=== PATIENT | male | born 1980 | race Caucasian/White ===

== ENCOUNTER 2018-05-18 11:40 | Inpatient (IN) | payer BC, OTHER ==
[2018-05-18] MEDS ORDERED: ONDANSETRON 4 MG/2 ML VIAL IV PRN (12:09)
[2018-05-18] MEDS ORDERED: MORPHINE 2 MG/ML SYR IV PRN (12:09)
[2018-05-18] MEDS ORDERED: TRAMADOL HCL 50 MG TAB PO PRN (12:09)
[2018-05-18] MEDS ORDERED: GENTAMICIN 80 MG/100 ML BAG 80 MG/100 ML BAG IV SCH (12:15)
[2018-05-18] MEDS: ACETAMINOPHEN 500 MG TAB PO PRN ×2 (12:39→18:54)
[2018-05-18 12:57] LABS: Urine Appearance CLEAR; Urine Bilirubin NEGATIVE (NEG); Urine Blood NEGATIVE (NEG); Urine Color YELLOW; Urine Glucose NEGATIVE (NEG); Urine Protein NEGATIVE (NEG)
[2018-05-18 13:11] LABS: Urine Microscopic Reflex ORDER UMIC
[2018-05-18 13:17] LABS: Urine Bacteria <20 /HPF (NONE SEEN)
[2018-05-18 13:18] LABS: Urine Culture Reflex Order NOT NEEDED
[2018-05-18] MEDS: HYDROCODONE/APAP 7.5/325 MG TAB PO PRN ×2 (13:30→18:59)
[2018-05-18] MEDS: CEFTRIAXONE/SWI 2gm 2 GM/20 ML SYR IV SCH (13:31)
[2018-05-18] MEDS: NA CHLORIDE 0.9% 1,000 ML IV SCH ×2 (13:31→20:12)
[2018-05-18 13:43] LABS: Absolute Monocytes 1.2 K/uL (0.1-1.3); Absolute Neutrophil 13.7 K/uL (1.8-8.0); Basophils % 0.3 % (0-1.3); Eosinophils % 0.1 % (0-4.4); Hematocrit 42.9 % (39.6-49.0); Lymphocytes % 6.5 % (15.3-44.8); MCH 30.5 pg (27.0-35.0); MCV 89.5 fL (80-100); MPV 7.3 fL (7.6-11.3); Monocytes % 7.6 % (3.3-12.3); RBC Red Blood Cell Count 4.79 M/uL (4.33-5.43)
[2018-05-18 13:56] LABS: Bilirubin Total 0.9 mg/dL (0.2-1.0); Potassium 3.8 mmol/L (3.5-5.1); Protein, Total 7.9 g/dL (6.4-8.2)
--- NOTE | 2018-05-18 14:38 | P.HP ---
Certification for Inpatient Patient admitted to: Inpatient With expected LOS: >2 Midnights Patient will require the following post-hospital care: None Practitioner: I am a practitioner with admitting privileges, knowledge of patient current condition, hospital course, and medical plan of care. Services: Services provided to patient in accordance with Admission requirements found in Title 42 Section 412.3 of the Code of Federal Regulations Patient History Date of Service: 05/18/18 Primary Care Provider: None; Urology-Dr. Whittington Reason for admission: Direct admission-acute prostatitis History of Present Illness: 38-year-old male presented to the hospital as a direct admit from urology. Patient was a direct admission from urology. Patient with history of recurrent UTI and nephrolithiasis. Patient reported fever over the last day. He also reported some poor urine flow since Friday. He denies any hematuria. Some nausea but no vomiting noted. He denies any chest pain, shortness of breath. Right flank pain was noted but mild. Patient was seen by urology. Patient was admitted for further evaluation and treatment. When I saw the patient, he appeared stable. He did not appear in any respiratory distress. Patient did not appear septic. Patient with history of recurrent UTIs. He has had 2 UTIs with possible pyelonephritis twice over the past 6 months. Patient with history of nephrolithiasis. Allergies amitriptyline HCl [From Elavil] Allergy (Intermediate, Verified 01/12/13 22:30) AMS Home medications list reviewed: Yes Home Medications: Oxybutynin Chloride [Ditropan*] 5 mg PO Q8HP #30 tab 01/13/13 Phenazopyridine HCl [Pyridium] 200 mg PO Q8HP #30 tablet 01/13/13 Tamsulosin [Flomax*] 0.4 mg PO DAILYPRN PRN #30 cap 01/13/13 - Past Medical/Surgical History Diabetic: No -: Recurrent UTI -: Nephrolithiasis -: Right bone fracture repair -: Stone removal -: Vasectomy with reversal Psychosocial/ Personal History: The patient is . He has 2 children. He works as a it programmer. - Family History Family History: Reviewed- Non-Contributory - Social History Smoking Status: Never smoker Alcohol use: Yes CD- Drugs: No Caffeine use: Yes Place of Residence: Home Review of Systems General: Fever, Chills, Weakness, As per HPI Eyes: Unremarkable ENT: Unremarkable Respiratory: Unremarkable Cardiovascular: Unremarkable Gastrointestinal: Nausea, Abdominal Pain, As per HPI Genitourinary: Incontinence, As per HPI Musculoskeletal: Unremarkable Integumentary: Unremarkable Neurological: Unremarkable Lymphatics: Unremarkable Physical Examination - Vital Signs Temperature: 104 F Blood Pressure: 119/70 Pulse: 93 Respirations: 18 Pulse Ox (%): 98 - Physical Exam General: Alert, In no apparent distress, Oriented x3, Cooperative HEENT: Atraumatic, Normocephalic, PERRLA, Mucous membr. moist/pink Neck: Supple, No Thyromegaly Respiratory: Clear to auscultation bilaterally, Normal air movement Cardiovascular: Normal pulses, Regular rate/rhythm Gastrointestinal: Normal bowel sounds, Soft and benign, Non-distended, No masses , No rebound, No guarding, Tenderness (Mild pain to the right flank) Musculoskeletal: No erythema, No tenderness, No warmth Integumentary: No tenderness/swelling, No erythema, No warmth, No cyanosis Neurological: Normal speech, Normal strength at 5/5 x4 extr, Normal tone, Normal affect Lymphatics: No axilla or inguinal lymphadenopathy - Studies Laboratory Data (last 24 hrs) 05/18/18 13:18: Sodium 138, Potassium 3.8, BUN 11, Creatinine 1.00, Glucose 101 , Magnesium 2.0, Total Bilirubin 0.9, AST 13 L, ALT 36, Alkaline Phosphatase 63 05/18/18 13:18: WBC 16.0 H, Hgb 14.6, Hct 42.9, Plt Count 228 Assessment and Plan - Plan Impression: Fever, right flank pain suspect prostatitis verses left pyelonephritis with history of recurrent UTI Nephrolithiasis Plan: Fever, right flank pain suspect prostatitis verses left pyelonephritis with history of recurrent UTI: Patient was a direct admit from neurology. Case discussed at length with urology. Will start Rocephin 2 g IV daily and gentamicin. Pharmacy to monitor and adjust. Will obtain blood and urine culture. Will provide medication for fever. Will start Flomax. Order CT scan of the abdomen and pelvis with and without IV and oral contrast to further evaluate. Will need to rule out abscess verses other etiology. Pro calcitonin and lactic acid within normal range. Will start IV fluids. Provide medication for pain. Will reassess tomorrow. Nephrolithiasis: Patient with history of nephrolithiasis. Will check CT scan of the abdomen and pelvis to further evaluate. I will turn the service over to Dr. Stearns tomorrow. I will go over the plan of care with him. - Advance Directives Does patient have a Living Will: No Does patient have a Durable POA for Healthcare: No - Code Status/Comfort Care Code Status Assessed: Yes (Patient full code) Time Spent Managing Pts Care (In Minutes): 55
--- NOTE | 2018-05-18 14:44 | RAD REPORT ---
EXAM DESCRIPTION: CT - Abdomen Pelvis W/Wo Contrast - 05/18/2018 2:33 pm CLINICAL HISTORY: Abdominal pain/fever COMPARISON: 2012 TECHNIQUE: Computed axial tomography of the abdomen and pelvis was obtained. Unenhanced and enhanced images were taken. 100 cc Isovue 300 was administered intravenously. Images were obtained in arteria l, venous and delayed phases. Coronal reconstruction was performed. All CT scans are performed using dose optimization technique as appropriate and may include automated exposure control or mA/KV adjustment according to patient size. FINDINGS: A 4 millimeter calculus is present the lower pole of the left kidney. Hydronephrosis is no t noted. A right renal calculus is not seen. A ureteral calculus is not visualized. The prostate gland is mildly enlarged. Seminal vesicles appear unremarkable. The appendix is normal. There is no evidence of diverticulitis IMPRESSION: 4 millimeter nonobstructing left renal calculus
[2018-05-18 15:13] LABS: Platelet Estimate ADEQ; Toxic Granulation NOTED; Urine White Blood Cell Casts OK
[2018-05-18 15:15] LABS: Blood Morphology Comment NOT SEEN (NOT SEEN)
[2018-05-18 15:36] VITALS: BMI 30.7
[2018-05-18] MEDS: ENOXAPARIN 40 MG/0.4 ML SQ SCH (17:51)
[2018-05-18] MEDS: GENTAMICIN IV SCH (17:51)
[2018-05-18] MEDS: NA CHLORIDE 0.9% IV SCH (17:51)
[2018-05-18] MEDS ORDERED: INFLUENZA VACCINE (for 3y+) 0.5 ML DOSE IMVAC ONE (19:00)
[2018-05-18] MEDS: TAMSULOSIN 0.4 MG SR CAP PO SCH (20:12)
[2018-05-19] MEDS: NA CHLORIDE 0.9% IV SCH ×3 (00:22→17:45)
[2018-05-19] MEDS: GENTAMICIN IV SCH ×3 (00:22→17:45)
[2018-05-19] MEDS: HYDROCODONE/APAP 7.5/325 MG TAB PO PRN ×3 (00:25→20:05)
[2018-05-19 04:17] LABS: Absolute Lymphocytes (CBC) 1.8 K/uL (0.7-4.9); Absolute Monocytes 1.3 K/uL (0.1-1.3); Absolute Neutrophil 13.9 K/uL (1.8-8.0); Basophils % 0.3 % (0-1.3); Eosinophils % 0.1 % (0-4.4); Hematocrit 38.5 % (39.6-49.0); Lymphocytes % 10.8 % (15.3-44.8); MCH 30.5 pg (27.0-35.0); MCV 90.2 fL (80-100); MPV 7.4 fL (7.6-11.3); Monocytes % 7.4 % (3.3-12.3); RBC Red Blood Cell Count 4.27 M/uL (4.33-5.43)
[2018-05-19 04:27] LABS: Magnesium 1.8 mg/dL (1.8-2.4); Potassium 4.1 mmol/L (3.5-5.1)
[2018-05-19] MEDS ORDERED: MAGNESIUM SULFATE 1 gm IVPB 1 GM/100 ML BAG IV ONE (05:36)
[2018-05-19] MEDS: PANTOPRAZOLE 40MG TABLET PO SCH (06:01)
[2018-05-19] MEDS: CEFTRIAXONE/SWI 2gm 2 GM/20 ML SYR IV SCH (09:11)
[2018-05-19] MEDS: NA CHLORIDE 0.9% 1,000 ML IV SCH ×3 (09:17→20:01)
[2018-05-19] MEDS: ENOXAPARIN 40 MG/0.4 ML SQ SCH (17:51)
--- NOTE | 2018-05-19 18:12 | PN ---
Date of Progress Note: 05/19/2018 Subjective: The patient seen and examined. Chart reviewed and case discussed with RN and Dr. Whittington. The patient doing significantly better. Still having a little bit of discomfort, however, no fever s overnight. Did not appear septic. We were able to tolerate diet. Review of Systems: Negative except as above. Medications: List reviewed. Physical Examination: Vital Signs: Temperature 98.7, heart rate 83, blood pressure 120/72, respirations 18, O2 97% on room air. General: Awake, alert, oriented x3. Some mild distress. Obese male. CV: S1, S2. No murmurs. Regular rate and rhythm. Peripheral pulses present. Respiratory: Moving air well bilaterally. No wheezing or stridor gastrointestinal. Abdomen: Abdomen is soft. Mild tenderness to palpation in the suprapubic region. No guarding or ri gidity. Bowel sounds positive. Extremities: No clubbing, cyanosis, edema. No flank tenderness. Neurologic: Nonfocal. Laboratory Data: Sodium 140, potassium 4.1, chloride 106, CO2 28, BUN 8, creatinine 1, glucose 112, calcium 8.2, magnesium 1.8. Lactic acid 1. WBC 17.1, H and H 13 and 38.5, platelets 213, neutrophil s 81%. Blood cultures pending. Urine culture growing out 4+ gram-negative rods, 100,000 colony-form ing units. CT scan of the abdomen and pelvis shows 11 mm low-density area present within the left as pect of the prostate gland, which may represent an abscess. A 4 mm nonobstructing left renal calculu s. Prostate gland mildly enlarged. Seminal vesicles appear unremarkable. Appendix is normal. No e vidence of diverticulitis. Assessment And Plan: A 38-year-old male with fever, right flank pain, suspect prostatitis versus pos sible pyelonephritis. CT scan of abdomen does show that there is an 11 mm abscess in the prostate. Dr. Whittington is on the case. We will continue with IV antibiotics. Urine culture growing out gram-nega tive rods. Blood culture is still pending. The patient is currently on Rocephin and gentamicin. No fevers overnight. White count still elevated, however, not septic, lactated negative, mildly tachyc ardic. No hypertension. No fevers. We will continue Flomax. The patient does have abscess. We wi ll defer to Dr. Whittington. Continue to monitor closely thank you. DANAY Voice ID: [id number] Report ID: [id number]
[2018-05-19] MEDS: TAMSULOSIN 0.4 MG SR CAP PO SCH (20:01)
[2018-05-20] MEDS: NA CHLORIDE 0.9% IV SCH ×2 (00:27→09:07)
[2018-05-20] MEDS: GENTAMICIN IV SCH ×2 (00:27→09:07)
[2018-05-20 04:37] LABS: Absolute Monocytes 0.6 K/uL (0.1-1.3); Absolute Neutrophil 6.3 K/uL (1.8-8.0); Basophils % 0.3 % (0-1.3); Eosinophils % 1.4 % (0-4.4); Hematocrit 36.2 % (39.6-49.0); Lymphocytes % 22.3 % (15.3-44.8); MCH 31.3 pg (27.0-35.0); MPV 7.2 fL (7.6-11.3); RBC Red Blood Cell Count 4.03 M/uL (4.33-5.43)
[2018-05-20 04:50] LABS: BUN Blood Urea Nitrogen 8 mg/dL (7-18); Bicarbonate 28 mmol/L (21-32); Glucose Level 100 mg/dL (74-106); Magnesium 2.2 mg/dL (1.8-2.4); Potassium 4.4 mmol/L (3.5-5.1); Sodium Level 142 mmol/L (136-145)
[2018-05-20] MEDS: PANTOPRAZOLE 40MG TABLET PO SCH (05:34)
[2018-05-20] MEDS: CEFTRIAXONE/SWI 2gm 2 GM/20 ML SYR IV SCH (09:07)
--- NOTE | 2018-05-20 09:31 | PN ---
Subjective: The patient feels better. Objective: Vital Signs: Temperature 98.7, pulse 83, respirations 18, BP 120/ 73. Laboratory Data: White count is elevated to 17.1, H and H is 13 and 38, and platelet count 213. Chemistry: Sodium 140, potassium 4.1, chloride _. Creatinine 1.1. GFR 83, glucose 112. Urine shows 3+ leukocyte esterase, 5-10 rbc, greater than 50 wbc. 100,000 Gram-negative joel in his urine. CT did show evidence of acute prostatitis on the left side between 3 o' clock an 6 o clock. A: Acute Prostatitis on Chronic P: Check culture results and use appropriate abx. PB/MODL Voice ID: [id number] Report ID: [id number] MTDD
[2018-05-20 09:39] VITALS: BP 124/80; TEMP 97.3
[2018-05-20 10:05] VITALS: O2SAT 98
--- NOTE | 2018-05-21 04:45 | DS ---
Date of Discharge: 05/20/2018 Consultants: Dr. Whittington with Urology. Admitting Diagnoses: 1.Fever. 2.Right flank pain. 3.Prostatitis. 4.History of recurrent urinary tract infection. 5.Nephrolithiasis. Discharge Diagnoses: 1.Right flank pain due to prostatitis. 2.Urinary tract infection, acute cystitis without hematuria, secondary to Klebsiella pneumoniae. 3.Nephrolithiasis, 4 mm calculus in the lower pole of the left kidney. No hydronephrosis. 4.Obesity, body mass index of 30. Hospital Course: Patient is a 38-year-old male with past medical history of nephrolithiasis who was sent to the hospital directly from Dr. Whittington's office for recurrent nephrolithiasis and urinary tract infection. The patient had fevers, low urine flow. Denied any hematuria. Also with right flank pa in. He was found to have UTI. His urine cultures grew out Klebsiella. CT scan of the abdomen showe d prostate gland to be mildly enlarged, 11 mm low density area within the left aspect of the prostate gland, which may represent abscess. A 4 mm nonobstructing left renal calculus was also present. Th e patient was seen by Dr. Whittington with Urology. He was started on IV antibiotics. The patient's white count improved and normalized. He was no longer febrile. He was feeling significantly better. He is not septic. Lactic level was negative x2. Procalcitonin was negative. He was not hypotensive. No further fevers. The patient was then doing well. He has been cleared for discharge from Urology standpoint. The patient was able to urinate well with Flomax. He does have history of recurrent nep hrolithiasis. He needs to have change in his diet to prevent further recurrence of stones, which has put him at risk for recurrent urinary tract infections and, at this time, prostatitis. He will need to continue Flomax. The patient will also need PSA testing when his prostate is not acutely inflame d within the next 4 to [address] Whittington's office to rule out any sort of benign prostatic hypertr ophy versus possible malignant prostate. The patient was then discharged home in a stable condition. Activity: As tolerated. Medications: As per medication reconciliation list. We will finish off the course of antibiotics fo r 30 days. Due to low penetration in the prostate, he was encouraged to take hot sitz baths. Followup: Follow up with primary care physician in 2-3 days. Follow up with urologist, ruthei Sterling 4 weeks. Return to ER for worsening condition. Have PSA level in 4-8 weeks. Total time spent discharging the patient was 39 minutes. Physical Examination: General: Awake, alert, oriented, no acute distress. CV: S1, S2. No murmurs. Respiratory: Moving air well bilaterally. Abdomen: Soft, nontender, nondistended. Positive bowel sounds. Extremities: No clubbing, cyanosis, edema. Neurologic: Nonfocal. SA/MODL Voice ID: [id number] Report ID: [id number]
== END 2018-05-20 11:53 | disposition home or self-care (01) | DRG 728 ==
LOC: 4TH 11:55
PROVIDERS: ADMIT Family Medicine; ATTEND Family Medicine
DX: N41.0 Acute prostatitis (principal); N30.00 Acute cystitis without hematuria; B96.1 Klebsiella pneumoniae [K. pneumoniae] as the cause of diseases classified elsewhere; N20.0 Calculus of kidney; E66.9 Obesity, unspecified; Z68.30 Body mass index [BMI] 30.0-30.9, adult
CPT/HCPCS: 36415; 74178; 80048; 80053; 80170; 81003; 81015; 83605; 83735; 84145; 85025; 87040; 87077; 87086; 87088; 87186; J0696; J1580; J1650; J3475; J7030; Q9967

== ENCOUNTER 2018-09-01 12:51 | Emergency (ER) | payer BC, OTHER ==
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
[2018-09-01 13:32] LABS: Urine Bacteria <20 /HPF (NONE SEEN); Urine Culture Reflex Order NOT NEEDED; Urine Mucus 1+ /HPF (NONE SEEN); Urine RBC <5 /HPF (NONE SEEN)
[2018-09-01 13:49] LABS: Urine Blood TRACE (NEG); Urine Glucose NEGATIVE (NEG); Urine Protein NEGATIVE (NEG)
[2018-09-01] MEDS ORDERED: IBUPROFEN 400 MG TAB ONE (13:58)
[2018-09-01] MEDS ORDERED: NA CHLORIDE 0.9% 1,000 ML ONE ×2 (13:58→15:52)
[2018-09-01 14:15] LABS: Absolute Lymphocytes (CBC) 1.3 K/uL (0.7-4.9); Absolute Monocytes 0.7 K/uL (0.1-1.3); Absolute Neutrophil 10.7 K/uL (1.8-8.0); Basophils % 0.4 % (0-1.3); Eosinophils % 0.3 % (0-4.4); Hematocrit 44.1 % (39.6-49.0); Lymphocytes % 9.9 % (15.3-44.8); MPV 6.7 fL (7.6-11.3); Monocytes % 5.6 % (3.3-12.3); RBC Red Blood Cell Count 4.99 M/uL (4.33-5.43)
[2018-09-01 14:31] LABS: Potassium 3.7 mmol/L (3.5-5.1)
--- NOTE | 2018-09-01 15:19 | RAD REPORT ---
EXAM DESCRIPTION: CT - Abdomen Pelvis W Contrast - 09/01/2018 2:42 pm CLINICAL HISTORY: Abdominal pain/dysuria COMPARISON: April 2018 TECHNIQUE: Computed axial tomography of the abdomen pelvis was obtained. 100 cc Isovue-300 was admin istered intravenously. Oral contrast was not requested which limits evaluation of bowel. All CT scans are performed using dose optimization technique as appropriate and may include automated exposure control or mA/KV adjustment according to patient size. FINDINGS: The liver, spleen, pancreas, adrenal and right kidney appear unremarkable. Nonobstructing 4 millimeter left renal calculus There is no evidence of diverticulitis. Appendix is normal Prostate gland appears borderline enlarged IMPRESSION: No acute abnormality is displayed.
[2018-09-01] MEDS ORDERED: CEFTRIAXONE/SWI 1gm 1 GM/10 ML SYR ONE (15:20)
--- NOTE | 2018-09-01 16:05 | ER ---
Nurse's Notes [facility] Name: Kostas Banks Age: 38 yrs Sex: Male : 1980 Arrival Date: 09/01/2018 Time: 12:56 Bed 30 Private MD: Diagnosis: Acute prostatitis Presentation: 09/01 12:57 Presenting complaint: Patient states: i started feeling the fever to day, last night i hj noticed my urine is dark; denies presence of blood; hx of recurrent UTI;. Transition of care: patient was not received from another setting of care. Onset of symptoms was September 01, 2018. Risk Assessment: Do you want to hurt yourself or someone else? Patient reports no desire to harm self or others. Initial Sepsis Screen: Does the patient meet any 2 criteria? No. Patient's initial sepsis screen is negative. Does the patient have a suspected source of infection? Yes: Dysuria/Frequency/Urgency/UTI. Care prior to arrival: None. 12:57 Method Of Arrival: Ambulatory 12:57 Acuity: SILVANO 4 hj Triage Assessment: 12:59 General: Appears in no apparent distress. uncomfortable, Behavior is calm, cooperative, hj appropriate for age. Pain: Denies pain. Complains of pain in pelvis. Historical: - Allergies: 12:59 amitriptyline HCl; hj - Home Meds: 12:59 None [Active]; hj - PMHx: 12:59 prostate issues; hj - PSHx: 12:59 right knee; hj - Immunization history:: Adult Immunizations not up to date. - Social history:: Smoking status: Patient/guardian denies using tobacco, Patient uses alcohol, occasionally. - Ebola Screening: : Patient negative for fever greater than or equal to 101.5 degrees Fahrenheit, and additional compatible Ebola Virus Disease symptoms Patient denies exposure to infectious person Patient denies travel to an Ebola-affected area in the 21 days before illness onset. - Family history:: not pertinent. - Hospitalizations: : No recent hospitalization is reported. Screenin:59 Abuse screen: Denies threats or abuse. Denies injuries from another. Nutritional hj screening: No deficits noted. Tuberculosis screening: No symptoms or risk factors identified. Fall Risk None identified. Assessment: 13:40 General: Appears in no apparent distress. uncomfortable, Behavior is calm, cooperative, jl7 appropriate for age. Pain: Complains of pain in "All of my joints." Pain does not radiate. Pain currently is 5 out of 10 on a pain scale. Quality of pain is described as aching, Is continuous. Neuro: Level of Consciousness is awake, alert, obeys commands, Oriented to person, place, time, situation. Cardiovascular: Patient's skin is warm and dry. Respiratory: Airway is patent Respiratory effort is even, unlabored, Respiratory pattern is regular, symmetrical. GI: No signs and/or symptoms were reported involving the gastrointestinal system. Patient currently denies diarrhea, nausea, vomiting. : Reports Dark urine Denies burning with urination. Derm: Skin is pink, warm \\T\\ dry. 15:17 Reassessment: Patient appears in no apparent distress at this time. Patient and/or ls4 family updated on plan of care and expected duration. Pain level reassessed. Patient is alert, oriented x 3, equal unlabored respirations, skin warm/dry/pink. Patient denies pain at this time. 16:38 Reassessment: No changes from previously documented assessment. Patient and/or family jl7 updated on plan of care and expected duration. Pain level reassessed. Patient is alert, oriented x 3, equal unlabored respirations, skin warm/dry/pink. Vital Signs: 13:00 BP 133 / 79; Pulse 110; Resp 18; Temp 100.5(O); Pulse Ox 100% on R/A; Weight 99.79 kg; hj Height 5 ft. 11 in. (180.34 cm); Pain 0/10; 14:45 BP 122 / 73; Pulse 105; Resp 16 S; Pulse Ox 98% on R/A; jl7 15:00 Temp 100.1; jl7 16:40 BP 115 / 72; Pulse 95; Resp 16; Pulse Ox 98% ; Pain 0/10; jl7 13:00 Body Mass Index 30.68 (99.79 kg, 180.34 cm) ED Course: 12:56 Patient arrived in ED. hj 12:58 Triage completed. hj 12:59 Arm band placed on left wrist. hj 13:00 Patient has correct armband on for positive identification. Placed in gown. Bed in low hj position. Call light in reach. Side rails up X 1. Adult w/ patient. 13:20 Luis Sanchez RN is Primary Nurse. [facility] 13:24 Boby Moise MD is Attending Physician. rn 13:28 Urine Microscopic Only Sent. hj 13:28 Urine Culture Sent. 14:00 Initial lab(s) drawn, by me, sent to lab. Inserted saline lock: 22 gauge in right jl7 forearm, using aseptic technique. Blood collected. 14:31 Patient moved to ND via wheelchair. 14:43 CT completed. Patient tolerated procedure well. Patient moved back from ND. ar 14:43 CT Abd/Pelvis - W/Contrast In Process Unspecified. EDMT 16:04 Charla Whittington MD is Referral Physician. rn 16:40 No provider procedures requiring assistance completed. IV discontinued, intact, jl7 bleeding controlled, No redness/swelling at site. Pressure dressing applied. Administered Medications: 14:08 Drug: NS 0.9% 1000 ml Route: IV; Rate: 1000 ml; Site: left forearm; jl7 15:00 Follow up: IV Status: Completed infusion jl 14:08 Drug: Motrin 800 mg Route: PO; jl7 15:00 Follow up: Temp 100.1; Response: No adverse reaction; Temperature is decreased jl 15:18 Drug: Rocephin - (cefTRIAXone) 1 grams {Note: PER PHARMACY PROTOCOL .} Route: IVPB; ls4 Infused Over: 10 mins; Site: left antecubital; 15:44 Drug: NS 0.9% 1000 ml Route: IV; Rate: 1000 ml; Site: left antecubital; jl7 16:40 Follow up: IV Status: Completed infusion jl Outcome: 16:04 Discharge ordered by MD. rn 16:40 Discharged to home ambulatory. jl7 16:40 Condition: stable 16:40 Discharge instructions given to patient, family, Instructed on discharge instructions, follow up and referral plans. medication usage, Demonstrated understanding of instructions, follow-up care, medications, Prescriptions given X 1. 16:43 Patient left the ED. jl7 Addendum: 09/03/2018 08:48 Addendum: Culture Results: Positive urine culture. No further action required. Bacteria i w sensitive to prescribed antibiotic. Signatures: Dispatcher [employer] EDMT Tarah Caballero Irene, RN RN iw Nieto, Roman, MD MD rn Joaquin, Henry, RN RN hj Jordan, Nathan nj Leal, Jahala, RN RN jl7 Roxanne Bowers RN RN ls4 Corrections: (The following items were deleted from the chart) 09/01 13:03 13:00 Pulse 110bpm; Resp 18bpm; Pulse Ox 100% RA; Temp 100.5F Oral; 99.79 kg; Height 5 hj ft. 11 in.; BMI: 30.6; Pain 0/10; hj
--- NOTE | 2018-09-01 16:05 | EDPHYS ---
Physician Documentation [facility] Name: Kostas Banks Age: 38 yrs Sex: Male : 1980 Arrival Date: 09/01/2018 Time: 12:56 Bed 30 Private MD: ED Physician Boby Moise HPI: 09/01 13:40 This 38 yrs old Male presents to ER via Ambulatory with complaints of rn prostate issues, recurrent UTI. 13:40 The patient presents with urinary symptoms. rn 13:41 Onset: The symptoms/episode began/occurred yesterday. Modifying factors: The symptoms rn are alleviated by nothing, the symptoms are aggravated by urinating. Severity of symptoms: At their worst the symptoms were mild, in the emergency department the symptoms are unchanged. The patient has experienced similar episodes in the past. Reports recurrent prostate problems, fever, chills, thirsty, reports last on abx for 1 month, 2-3 months ago, sees Dr. Whittington, also hx of kidney stones. No cough/congestion/chest pain/sob/abd pain. States this does not feel like kidney stone pain, feels identical to previous prostate infection.. Historical: - Allergies: 12:59 amitriptyline HCl; hj - Home Meds: 12:59 None [Active]; hj - PMHx: 12:59 prostate issues; hj - PSHx: 12:59 right knee; hj - Immunization history:: Adult Immunizations not up to date. - Social history:: Smoking status: Patient/guardian denies using tobacco, Patient uses alcohol, occasionally. - Ebola Screening: : Patient negative for fever greater than or equal to 101.5 degrees Fahrenheit, and additional compatible Ebola Virus Disease symptoms Patient denies exposure to infectious person Patient denies travel to an Ebola-affected area in the 21 days before illness onset. - Family history:: not pertinent. - Hospitalizations: : No recent hospitalization is reported. ROS: 13:41 Constitutional: + fever and chills Eyes: Negative for injury, pain, redness, and government affairs director, Neck: Negative for injury, pain, and swelling, Cardiovascular: Negative for chest pain, palpitations, and edema, Respiratory: Negative for shortness of breath, cough, wheezing, and pleuritic chest pain, Abdomen/GI: Negative for abdominal pain, nausea, vomiting, diarrhea, and constipation, Back: Negative for injury and pain, : Negative for injury, bleeding, discharge, and swelling, MS/Extremity: Negative for injury and deformity, Skin: Negative for injury, rash, and discoloration, Neuro: Negative for headache, weakness, numbness, tingling, and seizure. Exam: 13:41 Constitutional: This is a well developed, well nourished patient who is awake, alert, rn and in no acute distress. Head/Face: Normocephalic, atraumatic. ENT: mild dry MM Abdomen/GI: soft, non-tender MS/ Extremity: Pulses equal, no cyanosis. Neuro: Awake and alert, GCS 15. Vital Signs: 13:00 BP 133 / 79; Pulse 110; Resp 18; Temp 100.5(O); Pulse Ox 100% on R/A; Weight 99.79 kg; hj Height 5 ft. 11 in. (180.34 cm); Pain 0/10; 14:45 BP 122 / 73; Pulse 105; Resp 16 S; Pulse Ox 98% on R/A; jl7 15:00 Temp 100.1; jl7 16:40 BP 115 / 72; Pulse 95; Resp 16; Pulse Ox 98% ; Pain 0/10; jl7 13:00 Body Mass Index 30.68 (99.79 kg, 180.34 cm) MDM: 13:24 Patient medically screened. rn 15:59 Differential diagnosis: UTI, prostatitis. Data reviewed: vital signs, nurses notes, engineering lab technician test result(s), radiologic studies, CT scan, and as a result, I will discharge patient. Counseling: I had a detailed discussion with the patient and/or guardian regarding: the historical points, exam findings, and any diagnostic results supporting the discharge/admit diagnosis, lab results, radiology results, the need for outpatient follow up, to return to the emergency department if symptoms worsen or persist or if there are any questions or concerns that arise at home. Response to treatment: the patient's symptoms have markedly improved after treatment, patient is well hydrated. and as a result, I will discharge patient. Special discussion: I discussed with the patient/guardian in detail that at this point there is no indication for admission to the hospital. It is understood, however, that if the symptoms persist or worsen the patient needs to return immediately for re-evaluation. Based on the history and exam findings, there is no indication for further emergent testing or inpatient evaluation. I discussed with the patient/guardian the need to see the urologist for further evaluation of the symptoms. ED course: Pt improved with fluids and rocephin, + mild prostatitis, improving vitals, non-toxic, normal procalcitonin, will dc home with oral abx as patient agrees to try outpt therapy with return precautions, not septic. Will call Dr. Whittington for f/u appt and further evaluation. . 09/01 13:02 Order name: Urine Microscopic Only; Complete Time: 13:35 09/01 13:02 Order name: Urine Culture 09/01 13:30 Order name: Urine Dipstick-Ancillary; Complete Time: 14:48 EDMS 09/01 13:35 Order name: CBC with Diff; Complete Time: 14:48 rn 09/01 13:35 Order name: Basic Metabolic Panel; Complete Time: 14:48 09/01 13:02 Order name: Urine Dipstick-Ancillary (obtain specimen); Complete Time: 13:28 09/01 13:35 Order name: Procalcitonin; Complete Time: 14:48 rn 09/01 13:35 Order name: Blood Culture Adult (2) rn 09/01 13:39 Order name: CT Abd/Pelvis - W/Contrast; Complete Time: 15:21 rn 09/01 13:35 Order name: IV Start; Complete Time: 14:08 rn Administered Medications: 14:08 Drug: NS 0.9% 1000 ml Route: IV; Rate: 1000 ml; Site: left forearm; jl7 15:00 Follow up: IV Status: Completed infusion jl7 14:08 Drug: Motrin 800 mg Route: PO; jl7 15:00 Follow up: Temp 100.1; Response: No adverse reaction; Temperature is decreased jl7 15:18 Drug: Rocephin - (cefTRIAXone) 1 grams {Note: PER PHARMACY PROTOCOL .} Route: IVPB; ls4 Infused Over: 10 mins; Site: left antecubital; 15:44 Drug: NS 0.9% 1000 ml Route: IV; Rate: 1000 ml; Site: left antecubital; jl7 16:40 Follow up: IV Status: Completed infusion jl7 Disposition: 09/01/18 16:04 Discharged to Home. Impression: Acute prostatitis. - Condition is Stable. - Discharge Instructions: Prostatitis. - Prescriptions for cefpodoxime 100 mg Oral Tablet - take 2 tablet by ORAL route every 12 hours for 10 days take with food; 40 tablet. - Medication Reconciliation Form, Thank You Letter, Antibiotic Education, Prescription Opioid Use form. - Follow up: Charla Whittington MD; When: As needed; Reason: Recheck today's complaints, Re-evaluation by your physician. - Problem is new. - Symptoms have improved. Signatures: Dispatcher [employer] [facility] Boby Moise MD MD rn Joaquin, Henry RN RN hj Luis Sanchez RN RN jl7 Roxanne Bowers RN RN ls4 Corrections: (The following items were deleted from the chart) 13:28 13:13 URINE DIPSTICK--ANCILLARY+U.LAB.BRZ ordered. [facility] 16:43 16:04 09/01/2018 16:04 Discharged to Home. Impression: Acute prostatitis. Condition is jl7 Stable. Forms are Medication Reconciliation Form, Thank You Letter, Antibiotic Education, Prescription Opioid Use. Follow up: Charla Whittington; When: As needed; Reason: Recheck today's complaints, Re-evaluation by your physician. Problem is new. Symptoms have improved. rn
[2018-09-01 18:55] VITALS: O2SAT 98
[2018-09-01 18:57] VITALS: TEMP 100.1
[2018-09-01 18:59] VITALS: BP 115/72
== END 2018-09-01 16:43 | disposition home or self-care (01) ==
LOC: ER 12:51
DX: N41.0 Acute prostatitis (principal)
CPT/HCPCS: 36415; 74177; 80048; 81003; 81015; 84145; 85025; 87040; 87077; 87086; 87088; 87186; 96361; 96374; 99284; J0696; J7030; Q9967